=== PATIENT | female | born 1945 | race Caucasian/White ===

== ENCOUNTER 2017-03-01 11:14 | Emergency (ER) | payer BC, OTHER ==
[~2017-03-01] VITALS: Ht 170.2 cm; Wt 66.0 kg
[2017-03-01 11:19] VITALS: TEMP 36.6; Ht 170.2 cm; Wt 66.0 kg
[2017-03-01] MEDS ORDERED: PRLSR20 PO (11:53)
[2017-03-01] MEDS ORDERED: ASPI325T39 PO (11:53)
[2017-03-01] MEDS ORDERED: ATOR10TA82 PO (11:53)
[2017-03-01] MEDS ORDERED: ACET-749 PO (11:53)
[2017-03-01] MEDS ORDERED: LATA0.5S OP (11:53)
[2017-03-01] MEDS ORDERED: CHOL100010 PO (11:53)
[2017-03-01 12:44] LABS: BASO % 0.5 %; BASO ABS # 0.03 K/uL (0-0.2); EOS % 2.8 %; EOS ABS # 0.16 K/uL (0-0.5); HEMATOCRIT 44.8 % (37-47); HEMOGLOBIN 14.4 g/dL (12.0-16.0); IG# 0.01 K/uL (0.00-0.02); LYMPH % 30.9 %; LYMPH ABS # 1.77 K/uL (1.2-3.4); MEAN CELL VOLUME 92.9 fL (80-100); MEAN CORPUSCULAR HEMOGLOBIN 29.9 pg (25-34); MEAN CORPUSCULAR HGB CONC 32.1 g/dl (32-36); MEAN PLATELET VOLUME 10.5 fL (7.4-10.4); MONO % 7.7 %; MONO ABS # 0.44 K/uL (0.11-0.59); NEUT % 57.9 %; NEUT ABS # 3.31 K/uL (1.4-6.5); PLATELET COUNT 212 K/uL (130-400); RED CELL DISTRIBUTION WIDTH CV 14.3 % (11.5-14.5); RED CELL DISTRIBUTION WIDTH SD 48.2 fL (36.4-46.3); WHITE BLOOD COUNT 5.72 K/uL (4.8-10.8)
--- NOTE | 2017-03-01 13:00 | DIAGNOSTIC IMAGING REPORT ---
ABDOMEN AND PELVIS CT WITHOUT CONTRAST CT DOSE: 764.43 mGy.cm HISTORY: FLANK PAIN TECHNIQUE: Multiaxial CT images of the abdomen and pelvis were performed without the use of intravenous and oral contrast according to the standard department stone protocol. A dose lowering technique was utilized adhering to the principles of ALARA. COMPARISON STUDY: None. FINDINGS: The lung bases are clear. No pneumoperitoneum. No pneumatosis. The unenhanced liver, spleen, adrenal glands, and pancreas are unremarkable. There is a 2 cm gallstone. The gallbladder is mildly distended. No gallbladder wall thickening. Normal caliber common bile duct. Normal right kidney without hydronephrosis. The bladder, uterus, bilateral adnexa are unremarkable. Moderate calcified plaque within the normal caliber abdominal aorta. No retroperitoneal lymphadenopathy. Severe distention of the left renal collecting system/pelvis to the level of the ureteropelvic junction. The left ureter is not well visualized but appears to be normal in caliber. Therefore, this is consistent with a left ureteropelvic junction obstruction. No renal or ureteral calculi identified. Mild left cortical renal thinning. The left renal pelvis is distended up to 10 cm. Suboptimal evaluation for bowel pathology due to the lack of intravenous and oral contrast. However, there is no definite bowel wall thickening or obstruction. Colonic diverticulosis. Normal appendix. IMPRESSION: 1. Severe dilatation of the left renal pelvis consistent with hydronephrosis with an abrupt cut off at the ureteropelvic junction. This is consistent with a ureteropelvic junction obstruction and could be congenital or related to an occult underlying mass. Urology consultation is recommended. 2. No renal or ureteral calculi identified. 3. Cholelithiasis. Electronically signed by: Jomar Hooper M.D. 03/01/2017 12:59 PM Dictated Date/Time: 03/01/2017 12:52 PM
[2017-03-01 13:06] LABS: ALBUMIN 3.7 gm/dl (3.4-5.0); ALT/SGPT 22 U/L (12-78); AST/SGOT 16 U/L (15-37); BLOOD UREA NITROGEN 15 mg/dl (7-18); CALCIUM 9.5 mg/dl (8.5-10.1); CARBON DIOXIDE 23 mmol/L (21-32); CREATININE 1.37 mg/dl (0.60-1.20); GLUCOSE 84 mg/dl (70-99); LIPASE 216 U/L (73-393); SODIUM 140 mmol/L (136-145)
[2017-03-01 13:09] LABS: ALKALINE PHOSPHATASE 82 U/L (45-117); TOTAL PROTEIN 7.3 gm/dl (6.4-8.2)
[2017-03-01] MEDS ORDERED: KETOROLAC TROMETHAMINE 30 MG/ML VIAL IV STA (13:17)
[2017-03-01] MEDS ORDERED: HYDROCODONE/ACETAMOPHEN 5/325MG TAB PO STA (13:39)
[2017-03-01] MEDS ORDERED: ACETAMINOPHEN 325 MG TAB PO STA (13:39)
[2017-03-01] MEDS ORDERED: HYDROmorphone INJ 0.5 MG/0.5 ML SYR IV STA (13:39)
[2017-03-01] MEDS ORDERED: ONDA4TAB10 SL (14:43)
[2017-03-01] MEDS ORDERED: HYDR-5688 PO (14:43)
--- NOTE | 2017-03-01 14:43 | EMERGENCY ROOM VISIT NOTE ---
History Report prepared by Lizzy: Dayna Pérez Under the Supervision of: Dr. Jose Haynes M.D. First contact with patient: 12:02 Chief Complaint: KIDNEY STONE Stated Complaint: KIDNEY STONE History of Present Illness The patient is a 72 year old white female with a past medical history of kidney disease, lumbar fusion, TIA, hyperlipidemia, left kidney cyst, appendectomy who presents to the ED with a cc of persistent left flank pain beginning several days ago. She notes that she has been having this pain intermittently for 2 years. She currently rates her discomfort as a 6-7/10 in severity. The pain was worse yesterday. Positive abdominal pain. Negative nausea, vomiting, fevers, chills. She admits to occasional alcohol use. She is on aspirin. She had imaging yesterday which showed a kidney stone. Source of History: patient Onset: several days ago Position: other (flank) Symptom Intensity: 6-7/10 Quality: other (pain) Timing: other (persistent) Associated Symptoms: + abdominal pain, No fevers, No chills, No nausea, No vomiting Note: Pt reports flank pain. Review of Systems See HPI for pertinent positives and negatives. A total of ten systems were reviewed and were otherwise negative. Past Medical & Surgical Medical Problems: (1) Hyperlipidemia Surgical Problems: (1) S/P appendectomy (2) S/P lumbar fusion Family History No pertinent family history stated. Social History Smoking Status: Never Smoker Marital Status: Occupation Status: retired Current/Historical Medications Scheduled Aspirin (Aspirin Ec), 325 MG PO DAILY Atorvastatin (Lipitor), 10 MG PO DAILY Cholecalciferol (Vitamin D), 1,000 UNITS PO DAILY Latanoprost (Xalatan 0.005% Oph [place]), 1 DROPS OP HS Omeprazole (Prilosec), 20 MG PO BID Ondasetron Odt (Zofran Odt), 4 MG SL Q6H Scheduled PRN Acetaminophen/Codeine (Tylenol W/Codeine #3), 1 TAB PO for Pain Hydrocodone/Acetaminophen 5MG/325MG (Equality 5MG/325MG), 1-2 TABS PO Q6H PRN for Pain Allergies Coded Allergies: Flu Virus Vaccine (Unverified Allergy, Unknown, ., 03/01/17) Physical Exam Vital Signs Date Time Temp Pulse Resp B/P (MAP) Pulse Ox O2 Delivery O2 Flow Rate FiO2 03/01/17 14:56 73 16 145/86 99 03/01/17 13:38 78 03/01/17 13:22 77 18 166/95 03/01/17 11:19 36.6 86 18 141/78 98 Room Air Physical Exam GENERAL: Awake, alert, well-appearing, NAD HENT: Normocephalic, atraumatic. EYES: Normal conjunctiva. Sclera non-icteric. NECK: Supple. No nuchal rigidity. FROM. RESPIRATORY: CTAB, no rhonchi, wheezing, crackles CARDIAC: RRR, no MRG ABDOMEN: Soft, LUQ pain, ND, BS+ MSK: No chest wall TTP, no LE edema. Mild left CVA TTP. NEURO: GCS 15, CN 2-12 intact, moves all 4s on command SKIN: No rash or jaundice noted. Medical Decision & Procedures ER Provider Diagnostic Interpretation: Radiology results as stated below per my review and radiologist interpretation: ABDOMEN AND PELVIS CT WITHOUT CONTRAST CT DOSE: 764.43 mGy.cm HISTORY: FLANK PAIN TECHNIQUE: Multiaxial CT images of the abdomen and pelvis were performed without the use of intravenous and oral contrast according to the standard department stone protocol. A dose lowering technique was utilized adhering to the principles of ALARA. COMPARISON STUDY: None. FINDINGS: The lung bases are clear. No pneumoperitoneum. No pneumatosis. The unenhanced liver, spleen, adrenal glands, and pancreas are unremarkable. There is a 2 cm gallstone. The gallbladder is mildly distended. No gallbladder wall thickening. Normal caliber common bile duct. Normal right kidney without hydronephrosis. The bladder, uterus, bilateral adnexa are unremarkable. Moderate calcified plaque within the normal caliber abdominal aorta. No retroperitoneal lymphadenopathy. Severe distention of the left renal collecting system/pelvis to the level of the ureteropelvic junction. The left ureter is not well visualized but appears to be normal in caliber. Therefore, this is consistent with a left ureteropelvic junction obstruction. No renal or ureteral calculi identified. Mild left cortical renal thinning. The left renal pelvis is distended up to 10 cm. Suboptimal evaluation for bowel pathology due to the lack of intravenous and oral contrast. However, there is no definite bowel wall thickening or obstruction. Colonic diverticulosis. Normal appendix. IMPRESSION: 1. Severe dilatation of the left renal pelvis consistent with hydronephrosis with an abrupt cut off at the ureteropelvic junction. This is consistent with a ureteropelvic junction obstruction and could be congenital or related to an occult underlying mass. Urology consultation is recommended. 2. No renal or ureteral calculi identified. 3. Cholelithiasis. Electronically signed by: Jomar Hooper M.D. 03/01/2017 12:59 PM Dictated Date/Time: 03/01/2017 12:52 PM Laboratory Results 03/01/17 12:30 Red Blood Count 4.82, Mean Corpuscular Volume 92.9, Mean Corpuscular Hemoglobin 29.9, Mean Corpuscular Hemoglobin Concent 32.1, Mean Platelet Volume 10.5, Neutrophils (%) (Auto) 57.9, Lymphocytes (%) (Auto) 30.9, Monocytes (%) (Auto) 7.7, Eosinophils (%) (Auto) 2.8, Basophils (%) (Auto) 0.5, Neutrophils # (Auto) 3.31, Lymphocytes # (Auto) 1.77, Monocytes # (Auto) 0.44, Eosinophils # (Auto) 0.16, Basophils # (Auto) 0.03 03/01/17 12:30 Test 03/01/17 11:55 03/01/17 12:30 Urine Color YELLOW Urine Appearance CLEAR (CLEAR) Urine pH 5.0 (4.5-7.5) Urine Specific [place] 1.011 (1.000-1.030) Urine Protein NEG (NEG) Urine Glucose (UA) NEG (NEG) Urine Ketones NEG (NEG) Urine Occult Blood NEG (NEG) Urine Nitrite NEG (NEG) Urine Bilirubin NEG (NEG) Urine Urobilinogen NEG (NEG) Urine Leukocyte Esterase NEG (NEG) Urine WBC (Auto) 1-5 /hpf (0-5) Urine RBC (Auto) 0-4 /hpf (0-4) Urine Hyaline Casts (Auto) 0 /lpf (0-5) Urine Epithelial Cells (Auto) 0-5 /lpf (0-5) Urine Bacteria (Auto) NEG (NEG) White Blood Count 5.72 K/uL (4.8-10.8) Red Blood Count 4.82 M/uL (4.2-5.4) Hemoglobin 14.4 g/dL (12.0-16.0) Hematocrit 44.8 % (37-47) Mean Corpuscular Volume 92.9 fL (80-100) Mean Corpuscular Hemoglobin 29.9 pg (25-34) Mean Corpuscular Hemoglobin Concent 32.1 g/dl (32-36) Platelet Count 212 K/uL (130-400) Mean Platelet Volume 10.5 fL (7.4-10.4) Neutrophils (%) (Auto) 57.9 % Lymphocytes (%) (Auto) 30.9 % Monocytes (%) (Auto) 7.7 % Eosinophils (%) (Auto) 2.8 % Basophils (%) (Auto) 0.5 % Neutrophils # (Auto) 3.31 K/uL (1.4-6.5) Lymphocytes # (Auto) 1.77 K/uL (1.2-3.4) Monocytes # (Auto) 0.44 K/uL (0.11-0.59) Eosinophils # (Auto) 0.16 K/uL (0-0.5) Basophils # (Auto) 0.03 K/uL (0-0.2) RDW Standard Deviation 48.2 fL (36.4-46.3) RDW Coefficient of Variation 14.3 % (11.5-14.5) Immature Granulocyte % (Auto) 0.2 % Immature Granulocyte # (Auto) 0.01 K/uL (0.00-0.02) Anion Gap 9.0 mmol/L (3-11) Est Creatinine Clear Calc Drug Dose 36.6 ml/min Estimated GFR () 44.9 Estimated GFR (Non- 38.7 BUN/Creatinine Ratio 11.2 (10-20) Calcium Level 9.5 mg/dl (8.5-10.1) Total Bilirubin 0.4 mg/dl (0.2-1) Direct Bilirubin < 0.1 mg/dl (0-0.2) Aspartate Amino Transf (AST/SGOT) 16 U/L (15-37) Alanine Aminotransferase (ALT/SGPT) 22 U/L (12-78) Alkaline Phosphatase 82 U/L (45-117) Total Protein 7.3 gm/dl (6.4-8.2) Albumin 3.7 gm/dl (3.4-5.0) Lipase 216 U/L (73-393) Laboratory results reviewed by me Medications Administered Medications (Trade) Dose Ordered Sig/Yesenia Route Start Time Stop Time Status Last Admin Dose Admin Ketorolac Tromethamine (Toradol Inj) 30 mg NOW STAT IV 03/01/17 13:17 03/01/17 13:18 DC 03/01/17 13:24 30 MG Hydromorphone HCl (Dilaudid Inj) 0.5 mg NOW STAT IV 03/01/17 13:39 03/01/17 13:40 DC 03/01/17 13:55 0.5 MG Acetaminophen/ Hydrocodone Bitart (Equality 5/325 Tab) 1 tab ONE STAT PO 03/01/17 13:39 03/01/17 13:40 DC 03/01/17 13:55 1 TAB Acetaminophen (Tylenol Tab) 650 mg NOW STAT PO 03/01/17 13:39 03/01/17 13:40 DC 03/01/17 13:54 650 MG ED Course 1206: The patient was evaluated in room C11B. A complete history and physical exam was performed. 1325: I discussed the patient's case with TESSIE Mack [facility]. She recommends admitting the patient for pain control if necessary, otherwise outpatient follow up in the next week. 1332: I reevaluated the patient. She would like to be discharged home with better pain control. Discussed results and discharge instructions: She verbalized understanding and agreement. The patient is ready for discharge. 1342: The patient requests that we speak with her urologist, Dr. Evans. 1420: I discussed the patient's case with Dr. Evans, [facility]. She will see the patient as an outpatient. 1429: I reevaluated the patient. Discussed results and discharge instructions: She verbalized understanding and agreement. She will follow up with Dr. Evans. The patient is ready for discharge. Medical Decision The patient is a 72 year old white female with a past medical history of stage 3 kidney disease, lumbar fusion, TIA, hyperlipidemia, cyst in left kidney, appendectomy who presents to the ED with a cc of persistent left abdominal pain beginning several days ago. Differential diagnosis: Etiologies such as renal colic, appendicitis, diverticulitis, mesenteric ischemia, aortic pathology, infections, inflammatory bowel disease, PUD, biliary pathology, UTI, as well as others were entertained. Patient was seen and evaluated at the bedside. Patient was referred from her primary care due to concern of an outpatient ultrasound did show dilatation of the left renal pelvis. Patient did complain of some left CVA TTP as well as left upper quadrant pain. Patient did have blood work that was completed. Patient does have a known history of CK D. Patient creatinine of 1.3 a known and is I cannot view any priors here. Patient's CT of the abdomen pelvis did show a large obstruction at the left UPJ. No evidence of stone and if there is a mass that is not undetectable on CT scan. I did discuss the patient with the patient's primary urologist Dr. Evans who recommended that they would follow- up as an outpatient. She stated that her office would call the patient for further follow-up. I did discuss these recommendations with the patient. The patient was feeling improved. The patient wanted to go home. Believe the patient is suitable for outpatient follow-up and treatment at this time. Patient was given strict follow-up and return precautions. Patient was given strict follow-up, discharge, and return precautions. All questions were answered. Patient was deemed suitable for outpatient follow-up at this time. Patient agreed with the plan of care and was safely discharged home. Medication Reconcilliation Current Medication List: was personally reviewed by me Blood Pressure Screening Patient's blood pressure: Elevated blood pressure Blood pressure disposition: Elevated BP felt to be situational Consults Time Called: 1320 Consulting Physician: TESSIE Mack [facility] Returned Call: [phone] I discussed the patient's case with her. She recommends admitting the patient for pain control if necessary, otherwise outpatient follow up in the next week. Additional Consults: Time Called: 1342 Consulted Physician: Dr. Evans [facility] Returned Call: [phone] Additional Comments: I discussed the patient's case with her. She will see the patient as an outpatient. Impression Primary Impression: Flank pain Additional Impressions: UPJ (ureteropelvic junction) obstruction Hydronephrosis Scribe Attestation The scribe's documentation has been prepared under my direction and personally reviewed by me in its entirety. I confirm that the note above accurately reflects all work, treatment, procedures, and medical decision making performed by me. Departure Information Dispostion Home / Self-Care Prescriptions Ondasetron Odt (ZOFRAN ODT) 4 Mg Tab 4 MG SL Q6H for Nausea, #6 TAB Prov: Jose Haynes M.D. 03/01/17 Hydrocodone/Acetaminophen 5MG/325MG (Equality 5MG/325MG) Tab 1-2 TABS PO Q6H Y for Pain, #20 TAB Prov: Jose Haynes M.D. 03/01/17 Referrals Faraz Seo M.D. (PCP) Patient Instructions ED Flank Pain Uncertain Cause, [facility] Additional Instructions Please return to the emergency department if you have worsening or recurrent symptoms not amenable to at-home treatment. Please call for a follow-up appointment with her primary care physician. Please take your medications as prescribed. If you have other concerns and/or complaints please feel free to also call your primary care physician's office or return the ED for further evaluation, management, and treatment. You received narcotic or benzodiazepene medication while in the emergency room today. This is an addictive medication that may cause drowziness as well as constipation. Do not drive, operate heavy machinery, or drink alcohol under the influence of this medication. You may take tylenol 1000 mg every 6 hours as needed for pain. Take your medications as prescribed. You have been examined and treated today on an emergency basis only. This is not a substitute for, or an effort to provide, complete comprehensive medical care. It is impossible to recognize and treat all injuries or illnesses in a single emergency department visit. It is therefore important that you follow up closely with [facility], your PCP, and/or your specialist(s). Call as soon as possible for an appointment. Thank you for your time and consideration. I look forward to speaking with you again soon. Please don't hesitate to call us if you have any questions. Problem Qualifiers Additional Impressions: Hydronephrosis Hydronephrosis type: with ureteropelvic junction obstruction Qualified Codes : Q62.11 - Congenital occlusion of ureteropelvic junction
[2017-03-01 14:56] VITALS: BP 145/86; PULSE 73; O2SAT 99
--- NOTE | 2017-03-01 14:57 | Pharmacy Progress Note ---
ED Pharmacist Progress Note Date of Service: Mar 01, 2017. Karin [facility] called stating the Zofran ODT Rx was not covered by the patient's insurance. Dr Haynes permits substitution of regular release tabs. Authorized [facility] to sub the reg release tabs to fill this Rx.
--- NOTE | 2017-03-02 09:25 | Pharmacy Progress Note ---
ED Pharmacist Progress Note Date of Service: Mar 02, 2017. [employer] [facility] called today asking for the indication on Zofran Rx. Provider's note reviewed, indication is general nausea/vomiting associated with kidney stone.
== END 2017-03-01 14:57 | disposition home or self-care (01) ==
LOC: C.EDB 11:15 → C.EDC 14:57
DX: N13.0 Hydronephrosis with ureteropelvic junction obstruction (principal); N18.9 Chronic kidney disease, unspecified; E78.5 Hyperlipidemia, unspecified; Z98.1 Arthrodesis status; Z90.49 Acquired absence of other specified parts of digestive tract; Z86.73 Personal history of transient ischemic attack (TIA), and cerebral infarction without residual deficits; Z79.82 Long term (current) use of aspirin